=== PATIENT | female | born 1965 | race Caucasian/White ===

== ENCOUNTER 2020-06-23 10:23 | Emergency (ER) | payer OTHER ==
[~2020-06-23] VITALS: Ht 157.5 cm; Wt 70.3 kg
[2020-06-23] MEDS ORDERED: MEDI-MECLIZINE25 MG PO (15:44)
[2020-06-23] MEDS ORDERED: ACETAMINOPHEN325 M1 (15:49)
== END 2020-06-23 15:58 | disposition home or self-care (01) ==
LOC: ER 10:23
DX: R42 Dizziness and giddiness (principal)

== ENCOUNTER 2021-11-09 09:25 | Outpatient (CLI) | payer OTHER | END 2021-11-09 09:31 | disposition home or self-care (01) | LOC: LAB 09:25 | DX: E55.9 Vitamin D deficiency, unspecified (principal); R73.09 Other abnormal glucose; E78.2 Mixed hyperlipidemia; Z12.11 Encounter for screening for malignant neoplasm of colon; E03.9 Hypothyroidism, unspecified; B18.2 Chronic viral hepatitis C; A64 Unspecified sexually transmitted disease; E50.9 Vitamin A deficiency, unspecified; E53.9 Vitamin B deficiency, unspecified; N39.0 Urinary tract infection, site not specified; M06.9 Rheumatoid arthritis, unspecified ==

== ENCOUNTER → 2021-11-09 | Outpatient (CLI) | payer OTHER ==
[~2021-11-09] MED LIST: ACETAMINOPHEN325 M1; MEDI-MECLIZINE25 MG PO
== END | disposition home or self-care (01) ==
LOC: SONOGRAMA 11:08
DX: E03.8 Other specified hypothyroidism (principal)

== ENCOUNTER 2022-02-13 10:57 | Outpatient (CLI) | payer OTHER | END 2022-02-13 10:59 | disposition home or self-care (01) | LOC: NUCLEAR 10:57 | PROVIDERS: ATTEND Obstetrics & Gynecology | DX: M81.0 Age-related osteoporosis without current pathological fracture (principal); Z88.6 Allergy status to analgesic agent ==

== ENCOUNTER 2022-02-13 12:28 | Outpatient (CLI) | payer OTHER | END 2022-02-13 12:29 | disposition home or self-care (01) | LOC: LAB 12:28 | PROVIDERS: ATTEND Obstetrics & Gynecology | DX: D50.8 Other iron deficiency anemias (principal); N39.0 Urinary tract infection, site not specified; E07.89 Other specified disorders of thyroid; I11.9 Hypertensive heart disease without heart failure; E78.3 Hyperchylomicronemia; E55.9 Vitamin D deficiency, unspecified; N95.1 Menopausal and female climacteric states; N95.8 Other specified menopausal and perimenopausal disorders; L68.0 Hirsutism ==

== ENCOUNTER 2022-04-29 15:35 | Outpatient (CLI) | payer OTHER | END 2022-04-29 15:39 | disposition home or self-care (01) | LOC: SONOGRAMA 15:35 | PROVIDERS: ATTEND Pathology Anatomic Pathology & Clinical Pathology | DX: E04.1 Nontoxic single thyroid nodule (principal) ==

== ENCOUNTER 2022-11-16 08:08 | Outpatient (CLI) | payer OTHER | END 2022-11-16 08:11 | disposition home or self-care (01) | LOC: LAB 08:08 | DX: E55.9 Vitamin D deficiency, unspecified (principal); E53.9 Vitamin B deficiency, unspecified; R73.09 Other abnormal glucose; N39.0 Urinary tract infection, site not specified; E03.8 Other specified hypothyroidism; M06.9 Rheumatoid arthritis, unspecified; E78.2 Mixed hyperlipidemia; Z12.11 Encounter for screening for malignant neoplasm of colon; B18.2 Chronic viral hepatitis C; A64 Unspecified sexually transmitted disease ==

== ENCOUNTER 2022-11-18 12:06 | Outpatient (CLI) | payer OTHER | END 2022-11-18 12:10 | disposition home or self-care (01) | LOC: LAB 12:06 | DX: E55.9 Vitamin D deficiency, unspecified (principal); E53.9 Vitamin B deficiency, unspecified; R73.09 Other abnormal glucose; N39.0 Urinary tract infection, site not specified; E03.8 Other specified hypothyroidism; M06.9 Rheumatoid arthritis, unspecified; E78.2 Mixed hyperlipidemia ==

== ENCOUNTER 2023-03-28 13:05 | Outpatient (CLI) | payer OTHER | END 2023-03-28 13:14 | disposition home or self-care (01) | LOC: RAD 13:05 | DX: M25.512 Pain in left shoulder (principal); M54.2 Cervicalgia ==

== ENCOUNTER 2023-04-01 09:41 | Outpatient (CLI) | payer OTHER | END 2023-04-01 09:44 | disposition home or self-care (01) | LOC: SONOGRAMA 09:41 | PROVIDERS: ATTEND Physical Medicine & Rehabilitation | DX: M25.512 Pain in left shoulder (principal) ==

== ENCOUNTER 2023-07-05 10:07 | Outpatient (CLI) | payer OTHER ==
[2023-07-05 11:17] LABS: HEMATOCRIT 41.6 % (36.0-45.00); HEMOGLOBIN 14.1 g/dL (12.0-15.00); MEAN CELL VOLUME 92.1 fL (80.00-100.00); MEAN CORPUSCULAR HEMOGLOBIN 31.2 pg (27.00-32.0); MEAN CORPUSCULAR HGB CONC 33.9 g/dl (32.0-36.0); PLATELET COUNT 215 K/uL (150-450); RED BLOOD COUNT 4.52 M/uL (4.00-6.00); RED CELL DISTRIBUTION WIDTH 12.8 % (11.5-14.5)
[2023-07-05 11:21] LABS: PH,URINE 6.5 (5.0-8.0); URINE APPEARANCE Clear; URINE BILIRRUBIN Negative (NEGATIVE); URINE BLOOD Negative; URINE COLOR Yellow; URINE GLUCOSE Negative (NEGATIVE); URINE LEUKOCYTE Trace; URINE NITRATE Negative; URINE PROTEIN Trace (NEGATIVE); URINE UROBILINOGEN 0.2 E.U./dl
[2023-07-05 11:25] LABS: URINE BACTERIA 1118.8 uL (0.0-1933); URINE EPITHELIAL CELLS 51.6 uL (0.0-38.8); URINE RBC 17.1 uL (0.0-20.8); URINE WBC 11.4 uL (0.0-23.2)
[2023-07-05 11:53] LABS: URINE MUCUS HEAVY
[2023-07-05 12:02] LABS: ALBUMIN 4.2 gm/dL (3.4-5.0); BILIRUBIN TOTAL 0.66 mg/dL (0.3-1.2); CALCIUM 9.5 mg/dL (8.5-10.1); CHOL HDL RATIO 4.1 (0-5.0); CREATININE SERUM 0.63 mg/dL (0.55-1.02); FREE TRIODOTIRONINE 2.73 pg/ml (2.18-3.98); GFR 97.4; GLOBULINA 3.1 G/DL (2.4-3.5); POTASSIUM 4.48 mEq/L (3.5-5.1); T4 FREE 0.88 NG/ML (0.76-1.46); TOTAL PROTEIN 7.3 gm/dL (6.4-8.2); TSH 1.7 uIU/mL (0.358-3.74)
[2023-07-07 09:02] LABS: VITAMIN D3 25 HYDROXY 29.42 ng/ml (30-120)
== END 2023-07-05 23:00 | disposition home or self-care (01) ==
LOC: LAB 10:07
PROVIDERS: ATTEND General Practice
DX: E11.9 Type 2 diabetes mellitus without complications (principal); E55.9 Vitamin D deficiency, unspecified; D51.3 Other dietary vitamin B12 deficiency anemia; R73.09 Other abnormal glucose; Z12.11 Encounter for screening for malignant neoplasm of colon; N39.0 Urinary tract infection, site not specified; R50.9 Fever, unspecified; E78.2 Mixed hyperlipidemia; E03.9 Hypothyroidism, unspecified

== ENCOUNTER 2023-07-11 10:30 | Outpatient (CLI) | payer OTHER ==
[2023-07-11 13:48] LABS: ob NEGATIVE (NEGATIVE)
== END 2023-07-11 10:35 | disposition home or self-care (01) ==
LOC: LAB 10:30
PROVIDERS: ATTEND General Practice
DX: E11.9 Type 2 diabetes mellitus without complications (principal); E55.9 Vitamin D deficiency, unspecified; D51.3 Other dietary vitamin B12 deficiency anemia; Z12.11 Encounter for screening for malignant neoplasm of colon; N39.0 Urinary tract infection, site not specified; R50.9 Fever, unspecified; E78.2 Mixed hyperlipidemia; E03.8 Other specified hypothyroidism

== ENCOUNTER 2024-03-17 09:51 | Outpatient (CLI) | payer OTHER ==
[2024-03-17 10:41] LABS: HEMATOCRIT 40.1 % (36.0-45.00); HEMOGLOBIN 13.7 g/dL (12.0-15.00); MEAN CELL VOLUME 91.6 fL (80.00-100.00); MEAN CORPUSCULAR HEMOGLOBIN 31.3 pg (27.00-32.0); MEAN CORPUSCULAR HGB CONC 34.1 g/dl (32.0-36.0); PLATELET COUNT 225 K/uL (150-450); RED BLOOD COUNT 4.37 M/uL (4.00-6.00); RED CELL DISTRIBUTION WIDTH 13.3 % (11.5-14.5)
[2024-03-17 11:09] LABS: URINE APPEARANCE Clear; URINE BILIRRUBIN Negative (NEGATIVE); URINE BLOOD Negative; URINE COLOR Yellow; URINE GLUCOSE Negative (NEGATIVE); URINE KETONE Negative (NEGATIVE); URINE LEUKOCYTE Negative; URINE NITRATE Negative; URINE PROTEIN Negative (NEGATIVE); URINE UROBILINOGEN 0.2 E.U./dl
[2024-03-17 11:13] LABS: URINE BACTERIA 2344.6 uL (0.0-1933); URINE EPITHELIAL CELLS 61.9 uL (0.0-38.8); URINE RBC 26.7 uL (0.0-20.8); URINE WBC 13.7 uL (0.0-23.2)
[2024-03-17 11:26] LABS: ALBUMIN 4.5 gm/dL (3.4-5.0); BILIRUBIN TOTAL 0.78 mg/dL (0.3-1.2); CALCIUM 9.4 mg/dL (8.5-10.1); CHOL HDL RATIO 3.8 (0-5.0); CREATININE SERUM 0.7 mg/dL (0.55-1.02); FREE TRIODOTIRONINE 3.07 pg/ml (2.18-3.98); GFR 85.94; GLOBULINA 3.1 G/DL (2.4-3.5); POTASSIUM 4.45 mEq/L (3.5-5.1); T4 FREE 0.97 NG/ML (0.76-1.46); TOTAL PROTEIN 7.6 gm/dL (6.4-8.2); TSH 2.79 uIU/mL (0.358-3.74)
[2024-03-17 12:16] LABS: VITAMIN D3 25 HYDROXY 32.02 ng/ml (30-120)
== END 2024-03-17 09:53 | disposition home or self-care (01) ==
LOC: LAB 09:51
PROVIDERS: ATTEND General Practice
DX: E11.9 Type 2 diabetes mellitus without complications (principal); E55.9 Vitamin D deficiency, unspecified; D51.3 Other dietary vitamin B12 deficiency anemia; R73.9 Hyperglycemia, unspecified; N39.0 Urinary tract infection, site not specified; R50.9 Fever, unspecified; E78.2 Mixed hyperlipidemia; E03.8 Other specified hypothyroidism

== ENCOUNTER 2024-03-17 10:20 | Outpatient (CLI) | payer OTHER | END 2024-03-17 10:33 | disposition home or self-care (01) | LOC: MAMO-SONO 10:20 | PROVIDERS: ATTEND Obstetrics & Gynecology | DX: Z12.31 Encounter for screening mammogram for malignant neoplasm of breast (principal) ==

== ENCOUNTER 2024-04-01 11:27 | Outpatient (CLI) | payer OTHER | END 2024-04-01 11:28 | disposition home or self-care (01) | LOC: NUCLEAR 11:27 | PROVIDERS: ATTEND Internal Medicine | DX: I87.2 Venous insufficiency (chronic) (peripheral) (principal); I36.1 Nonrheumatic tricuspid (valve) insufficiency ==

== ENCOUNTER → 2024-04-14 | Emergency (ER) | payer OTHER ==
[~2024-04-14] VITALS: Ht 157.5 cm; Wt 66.2 kg
[~2024-04-14] MED LIST changes: +DEXAMETHASONE SODIUM PHOSPHATE 4 MG/ML VIAL IM ONE; +TUSNEL LIQUID178 ML PO; +ZYRTEC10 M3 PO
[2024-04-14 10:45] VITALS: BP 104/63; O2SAT 98
[2024-04-14 12:15] LABS: HEMATOCRIT 40.1 % (36.0-45.00); MEAN CELL VOLUME 90.3 fL (80.00-100.00); MEAN CORPUSCULAR HEMOGLOBIN 31.5 pg (27.00-32.0); MEAN CORPUSCULAR HGB CONC 34.9 g/dl (32.0-36.0); PLATELET COUNT 139 K/uL (150-450); RED BLOOD COUNT 4.44 M/uL (4.00-6.00); RED CELL DISTRIBUTION WIDTH 13.6 % (11.5-14.5)
== END | disposition home or self-care (01) ==
LOC: ER 10:19
PROVIDERS: General Practice
DX: B34.9 Viral infection, unspecified (principal); J10.1 Influenza due to other identified influenza virus with other respiratory manifestations; R53.81 Other malaise; Z20.822 Contact with and (suspected) exposure to COVID-19; Z88.6 Allergy status to analgesic agent